=== PATIENT | male | born 1950 | race Caucasian/White ===

== ENCOUNTER 2017-09-30 09:02 | Inpatient (IN) | payer MEDICARE, OTHER ==
[2017-09-23 11:05] LABS: BASOPHILS % (AUTO) 1.1 % (0-1); EOSINOPHILS # (AUTO) 0.1 X10'3 (0-0.9); EOSINOPHILS % (AUTO) 2.2 % (0-6); MEAN CORPUSCULAR HEMOGLOBIN 29.5 PG (27.0-31.0); MEAN CORPUSCULAR HGB CONC 34.8 % (33.0-36.5); MEAN CORPUSCULAR VOLUME 84.7 FL (78-98); MONOCYTES # (AUTO) 0.3 X10'3 (0-0.9); MONOCYTES % (AUTO) 9.1 % (2-12); NEUTROPHILS # (AUTO) 2.2 X10'3 (1.8-7.7); NEUTROPHILS % (AUTO) 60.6 % (42-75); PRE OP HEMATOCRIT 46.5 % (42.0-52.0); PRE OP HEMOGLOBIN 16.2 g/dL (14.0-17.9); PRE OP PLATELET COUNT 163 X10'3 (140-440); RED BLOOD COUNT 5.49 X10'6 (4.70-6.10); RED CELL DISTRIBUTION WIDTH 13.9 % (11.5-14.5)
[2017-09-23 11:07] LABS: CLARITY,URINE CLEAR (Clear); COLOR,URINE YELLOW (Yellow); GLUCOSE, URINE NEGATIVE (Neg); KETONES,URINE NEGATIVE (Neg); LEUKOCYTE ESTERASE ,URINE NEGATIVE (Neg); NITRITES, URINE NEGATIVE (Neg); OCCULT BLOOD,URINE MODERATE (Neg); PROTEIN,URINE NEGATIVE (Neg); UROBILINOGEN,URINE 0.2 E.U/dL (0.2-1.0)
[2017-09-23 11:08] LABS: UA COLLECTION TYPE NON-SPECIFIED
[2017-09-23 11:20] LABS: ALBUMIN 4.3 G/DL (3.4-5.0); ALBUMIN/GLOBULIN RATIO 1.3 (1.1-1.5); ALKALINE PHOSPHATASE 77 IU/L (46-116); BLOOD UREA NITROGEN 27 MG/DL (7-18); CALCIUM 8.9 MG/DL (8.5-10.1); CHLORIDE 107 MMOL/L (99-107); CREATININE 1.23 MG/DL (0.60-1.10); PRE OP ALT 34 U/L (30-65); PRE OP ANION GAP 11 (8-16); PRE OP AST 21 U/L (10-37); PRE OP BILIRUB, TOTAL 0.8 MG/DL (0.0-1.0); PRE OP GLUCOSE 90 MG/DL (70-104); PRE OP POTASSIUM 4.1 MMOL/L (3.4-5.1); PRE OP SODIUM 143 MMOL/L (135-145); TOTAL CARBON DIOXIDE 24.8 MMOL/L (24-32); TOTAL PROTEIN 7.6 G/DL (6.4-8.2); eGFR 59 ML/MIN
[2017-09-23 11:30] LABS: BACTERIA,URINE FEW /HPF (Neg); RBC,URINE 0-2 /HPF (0-2); SQUAMOUS EPITHELIAL CELL,UR FEW /LPF (FEW); WBC,URINE 0-4 /HPF (0-4)
[~2017-09-30] VITALS: Ht 182.9 cm; Wt 82.1 kg
[2017-09-30] VITALS (22 sets, daily range): BP systolic 85–143; BP diastolic 51–82
[~2017-09-30 09:02] MED LIST: NO HOME MEDS; acetaminophen 325mg tablet PO ONE; cefazolin/dext.iso 2gm/50ml 50 ML IV ONE; celeCOXIB 100mg capsule PO ONE; famotidine 20mg tablet PO ONE; gabapentin 300mg capsule PO ONE; metoclopramide 5 mg/ml inj IV ONE; oxyCODONE SR 10mg (sust. release) tab PO ONE; ringers solution, lacted 1,000 ML IV SCH; tranexamic acid inj. 1,000 MG in normal saline 100ml IV soln 90 ML IV ONE; vancomycin inj 1,500 MG in normal saline 300ml IV soln IV ONE
[2017-09-30] MEDS ORDERED: magnesium hydroxide 30ml (MOM) UD suspension PO PRN (09:25)
[2017-09-30] MEDS ORDERED: bisacodyl 10mg suppository rectal RC PRN (09:25)
[2017-09-30] MEDS ORDERED: diphenhydrAMINE 25mg capsule PO PRN ×2 (09:25)
[2017-09-30] MEDS ORDERED: acetaminophen 325mg tablet PO PRN (09:25)
[2017-09-30] MEDS ORDERED: ondansetron/PF 4mg/2ml inj IV PRN ×3 (09:25→13:00)
[2017-09-30] MEDS ORDERED: HYDROmorphone 1 mg/ml syringe IV PRN ×2 (09:25)
[2017-09-30] MEDS ORDERED: HYDROmorphone inj. 0.5 MG/0.5 ML DISP.SYRIN IV PRN ×2 (09:34→10:20)
[2017-09-30] MEDS: oxyCODONE/APAP 10/325mg tablet PO SCH ×3 (12:00→21:23)
[2017-09-30] MEDS ORDERED: ROPIVAcaine 0.5% (5mg/ml) 30ml vial ONE ×3 (12:00→13:23)
[2017-09-30] MEDS ORDERED: tetracaine 1% (10mg/ml) pres. free inj. ONE (12:00)
[2017-09-30] MEDS ORDERED: ringers solution, lacted 1,000 ML IV SCH (12:12)
[2017-09-30] MEDS ORDERED: labetalol 5mg/ml 20ml inj. IV PRN (12:15)
[2017-09-30] MEDS ORDERED: morphine 2 MG/ML inj. syringe IV PRN ×2 (12:15)
[2017-09-30] MEDS ORDERED: fentaNYL/PF 50MCG/1 ML 2ML syringe ONE (12:15)
[2017-09-30] MEDS ORDERED: fentaNYL/PF 50MCG/1 ML 2ML syringe IV PRN ×2 (12:15)
[2017-09-30] MEDS ORDERED: hydrALAZINE 20mg/ml inj. IV PRN (12:15)
[2017-09-30] MEDS ORDERED: midazolam 2 mg/2 ml injection ONE ×2 (12:16)
[2017-09-30] MEDS ORDERED: ketorolac trometh. 30mg/ml inj. ONE (12:22)
[2017-09-30] MEDS ORDERED: vancomycin 1,000mg inj ONE (12:22)
[2017-09-30] MEDS ORDERED: epiNEPHrine 1 mg/ml inj ONE (12:22)
[2017-09-30] MEDS ORDERED: diphenhydrAMINE 50 mg/ml inj IV PRN (13:00)
[2017-09-30] MEDS: gabapentin 300mg capsule PO SCH ×2 (13:00→21:21)
[2017-09-30] MEDS ORDERED: albumin (Human) 5% 250 ML IV solution IV STA ×2 (15:51)
[2017-09-30] MEDS ORDERED: albumin (Human) 5% 250ml 250 ML IV ONE (15:57)
[2017-09-30] MEDS: potassium cl 20mEq in 1/2 NS 1,000 ML IV SCH ×2 (17:23→21:20)
[2017-09-30] MEDS: cefazolin/dext.iso 2gm/50ml 50 ML IV SCH (21:20)
[2017-09-30] MEDS: ascorbic acid 500mg tablet PO SCH (21:21)
[2017-09-30] MEDS: sennosides 8.6mg tablet PO SCH (21:21)
[2017-09-30] MEDS: celeCOXIB 100mg capsule PO SCH (21:21)
[2017-10-01] MEDS: oxyCODONE/APAP 10/325mg tablet PO SCH ×6 (00:53→20:56)
[2017-10-01] MEDS: cefazolin/dext.iso 2gm/50ml 50 ML IV SCH (00:54)
[2017-10-01] MEDS: potassium cl 20mEq in 1/2 NS 1,000 ML IV SCH ×3 (01:23→13:05)
[2017-10-01 02:00] VITALS: BP 107/51
[2017-10-01 05:00] VITALS: BP 103/63
[2017-10-01 05:47] LABS: BASOPHILS % (AUTO) 0.4 % (0-1); EOSINOPHILS # (AUTO) 0.1 X10'3 (0-0.9); EOSINOPHILS % (AUTO) 1.2 % (0-6); HEMATOCRIT 35.2 % (42.0-52.0); HEMOGLOBIN 12.1 g/dl (14.0-17.9); LYMPHOCYTES # (AUTO) 0.5 X10'3 (1.1-4.8); LYMPHOCYTES % (AUTO) 9.3 % (21-51); MEAN CORPUSCULAR HEMOGLOBIN 29.5 PG (27.0-31.0); MEAN CORPUSCULAR HGB CONC 34.4 % (33.0-36.5); MEAN CORPUSCULAR VOLUME 85.7 FL (78-98); MEAN PLATELET VOLUME 9.6 FL (7.4-10.4); MONOCYTES # (AUTO) 0.5 X10'3 (0-0.9); NEUTROPHILS # (AUTO) 4.7 X10'3 (1.8-7.7); NEUTROPHILS % (AUTO) 80.1 % (42-75); PLATELET COUNT 118 X10'3 (140-440); RED CELL DISTRIBUTION WIDTH 13.4 % (11.5-14.5); WHITE BLOOD COUNT 5.9 X10'3 (4.5-11.0)
[2017-10-01 06:32] LABS: ANION GAP 8 (8-16); CHLORIDE 108 MMOL/L (99-107); POTASSIUM 4.2 MMOL/L (3.5-5.1); SODIUM 140 MMOL/L (135-145); TOTAL CARBON DIOXIDE 24.3 MMOL/L (24-32)
[2017-10-01] MEDS: aspirin 325mg tablet PO SCH (08:34)
[2017-10-01] MEDS: gabapentin 300mg capsule PO SCH ×3 (08:34→20:56)
[2017-10-01] MEDS: multivitamins, therapeutics tablet PO SCH (08:34)
[2017-10-01] MEDS: celeCOXIB 100mg capsule PO SCH ×2 (08:34→20:56)
[2017-10-01] MEDS: ascorbic acid 500mg tablet PO SCH ×2 (08:34→20:56)
[2017-10-01 10:00] VITALS: BP 104/60
[2017-10-01 14:00] VITALS: BP 115/64
[2017-10-01 18:42] VITALS: BP 124/70
[2017-10-01] MEDS: sennosides 8.6mg tablet PO SCH (20:57)
[2017-10-01 22:00] VITALS: BP 107/54
[2017-10-02] MEDS: oxyCODONE/APAP 10/325mg tablet PO SCH ×3 (00:18→09:16)
[2017-10-02] MEDS: oxyCODONE/APAP 10/325mg tablet PO PRN ×2 (01:35→05:50)
[2017-10-02 05:33] LABS: BASOPHILS % (AUTO) 0.9 % (0-1); EOSINOPHILS # (AUTO) 0.2 X10'3 (0-0.9); EOSINOPHILS % (AUTO) 4.9 % (0-6); HEMATOCRIT 34.4 % (42.0-52.0); HEMOGLOBIN 11.9 g/dl (14.0-17.9); LYMPHOCYTES # (AUTO) 0.8 X10'3 (1.1-4.8); LYMPHOCYTES % (AUTO) 16.1 % (21-51); MEAN CORPUSCULAR HEMOGLOBIN 29.5 PG (27.0-31.0); MEAN CORPUSCULAR HGB CONC 34.5 % (33.0-36.5); MEAN CORPUSCULAR VOLUME 85.3 FL (78-98); MONOCYTES # (AUTO) 0.6 X10'3 (0-0.9); MONOCYTES % (AUTO) 12.5 % (2-12); NEUTROPHILS # (AUTO) 3.2 X10'3 (1.8-7.7); NEUTROPHILS % (AUTO) 65.6 % (42-75); PLATELET COUNT 107 X10'3 (140-440); RED BLOOD COUNT 4.04 X10'6 (4.70-6.10); RED CELL DISTRIBUTION WIDTH 13.7 % (11.5-14.5); WHITE BLOOD COUNT 4.9 X10'3 (4.5-11.0)
[2017-10-02] MEDS ORDERED: ASPI-1 PO (06:34)
[2017-10-02 06:45] VITALS: BP 118/64
[2017-10-02] MEDS: celeCOXIB 100mg capsule PO SCH (07:58)
[2017-10-02] MEDS: multivitamins, therapeutics tablet PO SCH (07:58)
[2017-10-02] MEDS: aspirin 325mg tablet PO SCH (07:58)
[2017-10-02] MEDS: gabapentin 300mg capsule PO SCH (07:58)
[2017-10-02] MEDS: ascorbic acid 500mg tablet PO SCH (07:58)
== END 2017-10-02 10:18 | disposition home or self-care (01) | DRG 470 ==
LOC: PAS IN 09:02 → EDSTATUS 10:15 → ORTHO 4S 17:48
PROVIDERS: ADMIT Orthopaedic Surgery; ATTEND Orthopaedic Surgery
PROC: 3E0T3BZ Introduction of Anesthetic Agent into Peripheral Nerves and Plexi, Percutaneous Approach (ICD-10-PCS; 2017-09-30)
PROC: 0SRC0J9 Replacement of Right Knee Joint with Synthetic Substitute, Cemented, Open Approach (ICD-10-PCS; principal; 2017-09-30 12:18)
DX: M17.11 Unilateral primary osteoarthritis, right knee (principal); D62 Acute posthemorrhagic anemia; Z72.89 Other problems related to lifestyle; Z79.82 Long term (current) use of aspirin; Z79.899 Other long term (current) drug therapy; Z83.3 Family history of diabetes mellitus; Z80.9 Family history of malignant neoplasm, unspecified; Z87.891 Personal history of nicotine dependence
CPT/HCPCS: 36415; 71046; 73560; 80051; 80053; 81001; 85025; 86885; 86900; 86901; 87070; 97110; 97116; 97161; 97530; A6449; A6455; A7000; C1713; C1758; C1776; J0171; J0690; J1170; J1885; J2250; J2765; J2795; J3010; J3370; J7030; J7120; P9045